=== PATIENT | male | born 1995 | race Native Hawaiian/Other Pacific Islander ===

== ENCOUNTER 2016-06-07 23:46 | Emergency (ER) | payer OTHER ==
[~2016-06-07] VITALS: Ht 175.3 cm; Wt 68.0 kg
[2016-06-07 23:47] VITALS: BP 145/87; PULSE 84; RESP 14; TEMP 98.6; O2SAT 98
== END 2016-06-08 01:45 | disposition left against medical advice (07) ==
LOC: NED 23:46
DX: R42 Dizziness and giddiness (principal); Z53.21 Procedure and treatment not carried out due to patient leaving prior to being seen by health care provider
CPT/HCPCS: 99281

== ENCOUNTER 2017-04-06 14:37 | Emergency (ER) | payer OTHER ==
[2017-04-06 14:40] VITALS: BP 131/83; PULSE 118; RESP 17; TEMP 98.1; O2SAT 99
== END 2017-04-06 15:00 | disposition left against medical advice (07) ==
LOC: NED 14:37
DX: R09.89 Other specified symptoms and signs involving the circulatory and respiratory systems (principal)
CPT/HCPCS: 99281